=== PATIENT | female | born 2000 | race Caucasian/White ===

== ENCOUNTER 2022-09-04 10:39 | Observation (INO) ==
[2022-09-04] MEDS ORDERED: ONDANSETRON INJ 2 MG/ML 2 ML VIAL IV STA (11:36)
[2022-09-04] MEDS ORDERED: FAMOTIDINE 20MG IV PUSH 20 MG/5 ML SYR IV STA (11:36)
[2022-09-04] MEDS ORDERED: SODIUM CHLORIDE 0.9% 1000ML 1,000 ML IV SCH (11:37)
--- NOTE | 2022-09-04 11:41 | Emergency Department Note ---
History of Present Illness General Chief complaint: Abdominal Pain Stated complaint: UPPER ABD PAIN Time Seen by Provider: 09/04/22 11:03 History of Present Illness Maximum Pain Intensity: 7 Patient is a healthy 21-year-old female who presents emergency department for evaluation of epigastric abdominal pain. Her symptoms started around 2200 last evening. She states she was watching a movie when it happened. She notes a constant, aching epigastric pain that radiates through to her back. She states it feels like she was "punched in the stomach." She did feel nauseous and has vomited a total of 5 times, last was just prior to my arrival in the room. She tried taking some Tylenol which did seem to help that she was able to get a few hours of sleep. She has not had pain like this before. No history of stomach problems, has a history of infrequent acid reflux. There is no hematemesis. No diarrhea. No fever or chills. No urinary symptoms. She felt well this weekend and ate normally, no food or water concerns. No sick contacts. She does not drink alcohol, denies any drug use, no excess caffeine use. Allergies Allergy/AdvReac Type Severity Reaction Status Date / Time No Known Allergies Allergy Verified 09/04/22 11:36 Past Med/Surg History Medical History (Updated 09/04/22 @ 20:15 by Carlos Childs) History of dislocation of elbow right elbow Surgical History No history of previous surgery Social History Smoking Status: Current some day smoker Tobacco Type: E-cigarettes / Vaping Hx Alcohol Use: Yes Hx Substance Use: No Preferred Language: Uzbek Communication Ability: Effective Boarding Kennel Or Cattery Operator Required: No Beliefs That Will Affect Care: None Current Living Situation: Other Current Living Situation Comment: Roomate. Feels Safe at Home: Yes Safety Concerns: Feels Safe At This Time Assistive Devices: None Review of Systems A total of 10 systems reviewed and were otherwise negative Physical Exam Vital Signs Vital Signs - 24 hr 09/04/22 10:58 09/04/22 11:31 09/04/22 11:31 Temperature 36.6 C Temperature Source Temporal Artery Scan Pulse Rate 61 61 Pulse Rate [Left Finger] Pulse Rate from SpO2 Sensor Pulse Rhythm [Left Finger] Pulse Strength [Left Finger] Respiratory Rate 19 17 17 Respiratory Effort / Characteristics Non-Labored Non-Labored Respiratory Depth Normal Respiratory Pattern Regular Blood Pressure 128/85 154/72 H Blood Pressure [Left Arm] Blood Pressure Mean 99 99 Blood Pressure Mean [Left Arm] Blood Pressure Position [Left Arm] Pulse Oximetry 95 98 98 Oxygen Delivery Method Room Air Room Air Room Air Sepsis Recent Fever Within 48 Hours No Sepsis New/Unexplained Change in Mental Status N/A Sepsis Action Taken by Nursing No Action Required 09/04/22 13:03 09/04/22 11:11 09/04/22 11:20 Temperature Temperature Source Pulse Rate 59 L 58 L 102 H Pulse Rate [Left Finger] Pulse Rate from SpO2 Sensor 56 L Pulse Rhythm [Left Finger] Pulse Strength [Left Finger] Respiratory Rate 14 Respiratory Effort / Characteristics Respiratory Depth Respiratory Pattern Blood Pressure Blood Pressure [Left Arm] Blood Pressure Mean Blood Pressure Mean [Left Arm] Blood Pressure Position [Left Arm] Pulse Oximetry 98 Oxygen Delivery Method Sepsis Recent Fever Within 48 Hours Sepsis New/Unexplained Change in Mental Status Sepsis Action Taken by Nursing 09/04/22 11:30 09/04/22 11:40 09/04/22 11:50 Temperature Temperature Source Pulse Rate 60 63 60 Pulse Rate [Left Finger] Pulse Rate from SpO2 Sensor 60 62 60 Pulse Rhythm [Left Finger] Pulse Strength [Left Finger] Respiratory Rate 13 15 20 Respiratory Effort / Characteristics Respiratory Depth Respiratory Pattern Blood Pressure Blood Pressure [Left Arm] Blood Pressure Mean Blood Pressure Mean [Left Arm] Blood Pressure Position [Left Arm] Pulse Oximetry 98 98 97 Oxygen Delivery Method Sepsis Recent Fever Within 48 Hours Sepsis New/Unexplained Change in Mental Status Sepsis Action Taken by Nursing 09/04/22 12:00 09/04/22 12:57 09/04/22 13:00 Temperature Temperature Source Pulse Rate 60 58 L 58 L Pulse Rate [Left Finger] Pulse Rate from SpO2 Sensor 58 L 57 L 58 L Pulse Rhythm [Left Finger] Pulse Strength [Left Finger] Respiratory Rate 16 13 19 Respiratory Effort / Characteristics Respiratory Depth Respiratory Pattern Blood Pressure Blood Pressure [Left Arm] Blood Pressure Mean Blood Pressure Mean [Left Arm] Blood Pressure Position [Left Arm] Pulse Oximetry 96 99 99 Oxygen Delivery Method Sepsis Recent Fever Within 48 Hours Sepsis New/Unexplained Change in Mental Status Sepsis Action Taken by Nursing 09/04/22 13:10 09/04/22 13:20 09/04/22 13:30 Temperature Temperature Source Pulse Rate 65 54 L Pulse Rate [Left Finger] Pulse Rate from SpO2 Sensor 63 55 L Pulse Rhythm [Left Finger] Pulse Strength [Left Finger] Respiratory Rate 13 16 Respiratory Effort / Characteristics Respiratory Depth Respiratory Pattern Blood Pressure 108/81 Blood Pressure [Left Arm] Blood Pressure Mean 91 Blood Pressure Mean [Left Arm] Blood Pressure Position [Left Arm] Pulse Oximetry 100 100 Oxygen Delivery Method Sepsis Recent Fever Within 48 Hours Sepsis New/Unexplained Change in Mental Status Sepsis Action Taken by Nursing 09/04/22 13:30 09/04/22 14:12 09/04/22 14:13 Temperature 37.6 C H Temperature Source Oral Pulse Rate 58 L Pulse Rate [Left Finger] 56 L Pulse Rate from SpO2 Sensor 57 L Pulse Rhythm [Left Finger] Regular Pulse Strength [Left Finger] Normal Respiratory Rate 19 18 Respiratory Effort / Characteristics Non-Labored Spontaneous Respiratory Depth Normal Respiratory Pattern Regular Blood Pressure Blood Pressure [Left Arm] 128/82 Blood Pressure Mean Blood Pressure Mean [Left Arm] 97 Blood Pressure Position [Left Arm] Sitting Pulse Oximetry 100 100 Oxygen Delivery Method Room Air Room Air Sepsis Recent Fever Within 48 Hours Sepsis New/Unexplained Change in Mental Status Sepsis Action Taken by Nursing CONSTITUTIONAL: Patient is an uncomfortable/ill appearing 21-year-old female who is awake and alert and laying on the gurney. EYES: Pupils equal, round, reactive to light and accommodation. EOMs intact without nystagmus. Sclera are anicteric. ENT: Tympanic membranes intact, with normal landmarks. External canals are clear. Oral and nasopharynx are clear. Mucous membranes are moist, no lesions, tongue and gums appear normal. CARDIOVASCULAR: Regular rate and rhythm. Peripheral pulses easy to palpable. RESPIRATORY: Breath sounds equal and clear to auscultation. GI: Bowel sounds are present. Abdomen is soft, nondistended, tender to palpation in the epigastric and the right upper quadrant with voluntary guarding. MUSCULOSKELETAL: Full range of motion of extremities x 4 with good strength. No cyanosis, edema, joint tenderness or swelling. No deformity. INTEGUMENTARY: No lesions or rash, normal skin turgor. Course Course The patient was seen and assessed as above. External medical records are reviewed. She presents emergency department for evaluation of 12 hours of epigastric abdominal pain with associated nausea and vomiting. She is moderately tender in the epigastric and right upper quadrant on exam. IV lock was initiated and laboratory studies were collected. CBC with differential, CMP, lipase, urinalysis and serum hCG were collected. She was hydrated with normal saline solution, 1 L bolus and initially treated with Zofran 4 mg and Pepcid 20 mg IV. Gallbladder ultrasound was ordered. Laboratory studies per my interpretation note a normal white count at 8500. No left shift. No anemia. No significant electrolyte or renal function abnormalities. Transaminases are not elevated. Lipase is within normal limits. Serum hCG is negative. Urine microscopy is without signs of infection. Gallbladder ultrasound per my interpretation notes cholelithiasis and borderline gallbladder wall thickening concerning for acute cholecystitis. Nursing staff contacted me when the patient returned from ultrasound, stating that she was still vomiting. She was ordered fentanyl 50 mcg IV, Phenergan 12.5 mg IV and maintenance fluids. Laboratory studies and ultrasound findings were reviewed with her. Consultation was placed with general surgery. Patient was reviewed with KATY Plummer, with Dr. Nicholas. Please refer to surgical H&P for further information. They have elected to take the patient to the OR for cholecystectomy. A preoperative COVID test was obtained and was negative. Administered Medications Sodium Chloride (Nss 1000ml) 1,000 mls @ 250 mls/hr IV .Q4H RIGOBERTO Stop: 10/04/22 12:44 Last Admin: 09/04/22 17:25 Dose: 250 mls/hr Documented By: Infusion: 09/04/22 17:03 Dose: 0 mls/hr Documented By: Admin: 09/04/22 12:57 Dose: 250 mls/hr Documented By: SHERRI Ketorolac Tromethamine (Ketorolac 30 Mg/Ml Vial) 30 mg IV Q6H PRN PRN Reason: Pain & Pre PT Stop: 09/09/22 16:59 Last Admin: 09/04/22 17:31 Dose: 30 mg Documented By: CECY Discontinued Medications Bupivacaine HCl/Epinephrine Bitart (Bupivacaine/Epinephrine 0.25% 1:200,000 30 Ml Vial) Confirm Administered Dose 30 ml .ROUTE .STK-MED ONE Stop: 09/04/22 14:04 Last Admin: 09/04/22 15:13 Dose: 30 ml Documented By: ISABELLA Cefazolin Sodium (Cefazolin 2,000 Mg/15 Ml Iv Push) Confirm Administered Dose 2,000 mg IV .STK-MED ONE Stop: 09/04/22 14:35 Last Admin: 09/04/22 14:47 Dose: Not Given Documented By: FIORDALIZA Fentanyl Citrate (Fentanyl Citrate Pf 100 Mcg/2 Ml Vial) 50 mcg IV NOW STA Stop: 09/04/22 12:44 Last Admin: 09/04/22 12:57 Dose: 50 mcg Documented By: SHERRI Sodium Chloride (Nss 1000ml) 1,000 mls @ 999 mls/hr IV .Q1H1M RIGOBERTO Stop: 09/04/22 12:37 Last Infusion: 09/04/22 12:38 Dose: 0 mls/hr Documented By: Admin: 09/04/22 11:53 Dose: 999 mls/hr Documented By: SHERRI Famotidine (Pepcid 20mg Iv Push) 20 mg in 5 mls @ 2.5 mls/min IV NOW STA Stop: 09/04/22 11:37 Last Admin: 09/04/22 11:53 Dose: 2.5 mls/min Documented By: SHERRI Promethazine HCl (Phenergan) 12.5 mg in 50.5 mls @ 202 mls/hr IV NOW STA Stop: 09/04/22 12:57 Last Infusion: 09/04/22 13:12 Dose: 0 mls/hr Documented By: Admin: 09/04/22 12:58 Dose: 202 mls/hr Documented By: SHERRI Cefazolin Sodium (Ancef 2000mg) 2,000 mg in 15 mls @ 3.75 mls/min IV PREOP ONE; Protocol Stop: 09/04/22 14:36 Last Admin: 09/04/22 14:43 Dose: 3.75 mls/min Documented By: STEPHANIE Ondansetron HCl (Ondansetron Inj 2 Mg/Ml 2 Ml Vial) 4 mg IV NOW STA Stop: 09/04/22 11:37 Last Admin: 09/04/22 11:53 Dose: 4 mg Documented By: SHERRI Medical Decision Making Differential Diagnosis Differential diagnoses entertained included GERD, gastritis, esophagitis, peptic ulcer disease, infectious versus inflammatory colitis/enteritis, foodborne illness, otitis, acute cholecystitis, biliary colic, among others. Medical Records Attestation: I reviewed the patient's medical records. Home Medications Current Medication List: was personally reviewed by me Laboratory Data Attestation: I reviewed the patient's lab results. 09/04/22 Unknown 09/04/22 Unknown Lab Results 09/04/22 09/04/22 Range/Units 11:40 13:11 Urine Color Yellow Urine Appearance Clear (Clear) Urine pH 6.0 (4.5-7.5) Ur Specific [place] 1.029 (1.000-1.030) Urine Protein Trace H (Negative) Urine Glucose (UA) Negative (Negative) Urine Ketones 1+ H (Negative) Urine Blood Negative (Negative) Urine Nitrite Negative (Negative) Urine Bilirubin Negative (Negative) Urine Urobilinogen Negative (Negative) Ur Leukocyte Esterase Negative (Negative) Urine WBC (Auto) 1-5 (0-5) /hpf Urine RBC (Auto) 0-4 (0-4) /hpf U Hyaline Cast (Auto) 1-5 (0-5) /lpf U Epithel Cells (Auto) 10-20 H (0-5) /lpf Urine Bacteria (Auto) Negative (Negative) SARS-CoV-2, RNA, NAAT NEGATIVE (NEGATIVE) Imaging Data Attestation: I personally reviewed and interpreted this imaging study as follows: Radiologist's Impression: Gallbladder Ultrasound 09/04/22 11:37 US gallbladder CLINICAL HISTORY: EPIGASTRIC ABD PAIN TECHNIQUE: Multiple real-time sonographic images of the right upper quadrant were obtained. Comparison: None available at the time of this dictation. FINDINGS: The liver is diffusely homogenous with normal contour and echogenicity. No focal mass lesions are seen. No intrahepatic ductal dilatation is seen. Linear hyperechoic foci with posterior shadowing are identified layering dependently within the gallbladder, which are consistent with gallstones. The gallbladder wall measures 0.3 cm. There is no pericholecystic fluid present. A sonographic Banegas's sign was elicited by the reactor service operator. The common duct measures 0.6 cm in diameter at the level of the hepatic artery. The visualized portions of the pancreas appear normal. The right kidney shows normal echogenicity, cortical thickness and renal contour. The right kidney shows no evidence of hydronephrosis or mass. No ascites or free fluid is seen in August's pouch. IMPRESSION: Cholelithiasis and borderline gallbladder wall thickening with positive Banegas's sign. Findings are concerning for acute cholecystitis. ACT 112: Negative or not required by law. Electronically signed by: Tomasz Freire M.D. 09/04/2022 12:40 PM MDM Narrative See ED Course. Impression & Plan Acute cholecystitis Discharge Plan Visit Data Chief Complaint: Abdominal Pain Stated Complaint: UPPER ABD PAIN ED Provider: Misael Hernández ED Midlevel Provider: Carlos Childs Discharge Problem: Acute cholecystitis Patient Disposition: Admitted As Inpatient Discharge Instructions Interventions: ED Discharge Assessment Last Done: 09/04/22 14:13
[2022-09-04 12:13] LABS: Basophils # (auto) 0.03 K/uL (0-0.2); Basophils % (auto) 0.4 %; Eosinophils # (auto) 0.07 K/uL (0-0.50); Eosinophils % (auto) 0.8 %; Hematocrit (blood only) 42.8 % (37.0-47.0); Hemoglobin 14.5 g/dl (12.0-16.0); Immature Granulocytes # (auto) 0.02 K/uL (0.01-0.20); Immature Granulocytes % (auto) 0.2 %; Lymphocytes # (auto) 2.01 K/uL (1.2-3.4); Lymphocytes % (auto) 23.5 %; Mean Corpuscular Hemoglobin 28.4 pg (25.0-34.0); Mean Corpuscular Hgb Conc 33.9 g/dL (32.0-36.0); Mean Corpuscular Volume 83.9 fL (80.0-100.0); Monocytes # (auto) 0.55 K/uL (0.11-0.59); Monocytes % (auto) 6.4 %; Neutrophils # (auto) 5.89 K/uL (1.40-6.50); Neutrophils % (auto) 68.7 %; Platelet Count 257 K/uL (130-400); RDW Coefficient of Variation 12.4 % (11.5-14.5); RDW Standard Deviation 38.2 fL (36.4-46.3); White Blood Count 8.57 K/ul (4.8-10.8)
[2022-09-04 12:24] LABS: Albumin Globulin Ratio 1.6 (0.9-2); Albumin Level 4.6 gm/dl (3.4-5.0); BUN Creatinine Ratio 10.1 (10-20); Bilirubin,Total 0.4 mg/dl (0.2-1.0); Calcium 9.6 mg/dl (8.6-10.3); Creatinine Clr Calc Pharmacy 142.6 ml/min; Est GFR (African American) 145.2 ml/min; Est GFR (Non-African American) 125.3 ml/min; Globulin 2.9 gm/dl (2.5-4.0); Potassium 3.7 mmol/L (3.5-5.1); Pregnancy Test, Serum Negative (Negative); Total Protein 7.5 gm/dl (6.0-8.3)
[2022-09-04 12:32] LABS: Appearance Urine Clear (Clear); Bacteria Urine Automated Negative (Negative); Bilirubin Urine Negative (Negative); Blood Urine Negative (Negative); Color Urine Yellow; Glucose Urine UA Negative (Negative); Ketones Urine 1+ (Negative); Leukocyte Esterase Urine Negative (Negative); Nitrite Urine Negative (Negative); Protein Urine Trace (Negative); RBC Urine Automated 0-4 /hpf (0-4); Specific Gravity Urine 1.029 (1.000-1.030); Urobilinogen Urine Negative (Negative)
--- NOTE | 2022-09-04 12:41 | Ultrasound Report ---
US gallbladder CLINICAL HISTORY: EPIGASTRIC ABD PAIN TECHNIQUE: Multiple real-time sonographic images of the right upper quadrant were obtained. Comparison: None available at the time of this dictation. FINDINGS: The liver is diffusely homogenous with normal contour and echogenicity. No focal mass lesions are see n. No intrahepatic ductal dilatation is seen. Linear hyperechoic foci with posterior shadowing ar e identified layering dependently within the gallbladder, which are consistent with gallstones. The g allbladder wall measures 0.3 cm. There is no pericholecystic fluid present. A sonographic Banegas's s ign was elicited by the antiquer. The common duct measures 0.6 cm in diameter at the level of th e hepatic artery. The visualized portions of the pancreas appear normal. The right kidney shows normal echogenicity, cortical thickness and renal contour. The right kidney sh ows no evidence of hydronephrosis or mass. No ascites or free fluid is seen in August's pouch. IMPRESSION: Cholelithiasis and borderline gallbladder wall thickening with positive Banegas's sign. Findings are c oncerning for acute cholecystitis. ACT 112: Negative or not required by law. Electronically signed by: Tomasz Freire M.D. 09/04/2022 12:40 PM
[2022-09-04] MEDS ORDERED: fentaNYL citrate PF 100 MCG/2 ML VIAL IV STA (12:43)
[2022-09-04] MEDS ORDERED: PROMETHAZINE 12.5 MG/50.5 ML BAG IV STA (12:43)
[2022-09-04] MEDS: SODIUM CHLORIDE 0.9% 1000ML 1,000 ML IV SCH ×3 (12:57→22:34)
[2022-09-04] MEDS ORDERED: BUPIVACAINE/EPINEPHRINE 0.25% 1:200,000 30 ML VIAL ONE (14:03)
[2022-09-04] MEDS ORDERED: fentaNYL citrate PF 100 MCG/2 ML VIAL ONE ×2 (14:08→15:10)
[2022-09-04] MEDS ORDERED: MIDAZOLAM HCL 1 MG/ML 2ML VIAL ONE (14:08)
[2022-09-04] MEDS ORDERED: ONDANSETRON INJ 2 MG/ML 2 ML VIAL IV PRN ×2 (14:23→17:00)
[2022-09-04] MEDS ORDERED: ePHEDrine sulfate 50 MG/ML AMP IV PRN (14:23)
[2022-09-04] MEDS ORDERED: fentaNYL citrate PF 100 MCG/2 ML VIAL IV PRN (14:23)
[2022-09-04] MEDS ORDERED: PROMETHAZINE HCL 6.25 MG in SODIUM CHLORIDE 0.9% 50 ML IV PRN (14:23)
[2022-09-04] MEDS ORDERED: ATROPINE SULFATE 0.1 MG/ML 10ML SYR IV PRN (14:23)
--- NOTE | 2022-09-04 14:24 | Anesthesiology Consultation ---
Date of Service September 04, 2022 Assessment & Plan Chart Review Chart Review: Acceptable Risk for Surgery and Patient NOT seen in Pre Admission Testing Consults Requested none ASA [id number] Proposed Anesthesia Anesthesia Type: General Risk / Benefits Reviewed With: PT / POA / Parent / Guardian, Accepts Plan and Informed Consent Obtained History Surgery Operation Date: 09/04/22 10:55 Proposed Procedures p Laparoscopic Cholecystectomy - Elieser Nicholas MD Height/Weight Height: 5 ft 8 in Weight: 77.8 kg Allergies Allergy/AdvReac Type Severity Reaction Status Date / Time No Known Allergies Allergy Verified 09/04/22 11:36 Medications Active Medications Generic Name Dose Route Start Last Admin Trade Name Freq PRN Reason Stop Dose Admin Sodium Chloride 1,000 mls @ 250 mls/hr 09/04/22 12:45 09/04/22 12:57 Nss 1000ml IV 10/04/22 12:44 250 mls/hr .Q4H RIGOBERTO Administration NPO Date Last Intake of Fluids: 09/03/22 Time Last Intake of Fluids: 07:30 Date Last Intake of Solids: 09/03/22 Time Last Intake of Solids: 19:00 Past Medical History Medical History (Updated 09/04/22 @ 11:40 by Carlos Childs) No significant past medical history Exercise / Class Metabolic Activity II 4-5 Yardwork/Stairs/Walk up hill Past Surgical History Surgical History (Updated 09/04/22 @ 11:40 by Carlos Childs) No history of previous surgery Past Anesthesia History No Hx of Anesthesia Complications and No Family Hx of Anesthesia Complications History of PONV No Hx of PONV and No Hx of Motion Sickness Social History Smoking Status: Current every day smoker Physical Exam Vital Signs Last Vital Signs Temp 37.6 C H 09/04/22 14:12 Pulse 56 L 09/04/22 14:12 Resp 18 09/04/22 14:12 BP 128/82 09/04/22 14:12 Pulse Ox 100 09/04/22 14:12 O2 Del Method Room Air 09/04/22 14:13 ENMT Mouth: no dentition abnormality Thyromental Distance: > or= 3.5 Finger Breadths Mallampati Class: II Neck normal visual inspection Respiratory normal respiratory effort Auscultation: lungs clear to auscultation bilaterally Cardiovascular Rate/Rhythm: regular rate and regular rhythm Psychiatric Orientation: alert Testing Laboratory Results 09/04/22 Unknown 09/04/22 Unknown Urine Color Yellow 09/04/22 11:40 Urine Appearance Clear (Clear) 09/04/22 11:40 Urine pH 6.0 (4.5-7.5) 09/04/22 11:40 Ur Specific [place] 1.029 (1.000-1.030) 09/04/22 11:40 Urine Protein Trace (Negative) H 09/04/22 11:40 Urine Glucose (UA) Negative (Negative) 09/04/22 11:40 Urine Ketones 1+ (Negative) H 09/04/22 11:40 Urine Nitrite Negative (Negative) 09/04/22 11:40 Ur Leukocyte Esterase Negative (Negative) 09/04/22 11:40 Urine WBC (Auto) 1-5 /hpf (0-5) 09/04/22 11:40 Urine RBC (Auto) 0-4 /hpf (0-4) 09/04/22 11:40 U Hyaline Cast (Auto) 1-5 /lpf (0-5) 09/04/22 11:40 U Epithel Cells (Auto) 10-20 /lpf (0-5) H 09/04/22 11:40 Urine Bacteria (Auto) Negative (Negative) 09/04/22 11:40
--- NOTE | 2022-09-04 14:26 | History & Physical Report ---
Date of Service September 04, 2022 Assessment & Plan (1) Acute cholecystitis: Plan: 21-year-old woman presents with acute cholecystitis. We discussed the risks and benefits of a laparoscopic cholecystectomy, possible open. We discussed the postoperative recovery and restrictions. All her questions were answered, and she is agreeable to proceed. We will take her to the operating room at the earliest convenience. History of Present Illness Primary Care Provider: [facility] 21-year-old woman presents with a 1 day history of right upper quadrant pain radiating to her back and to her shoulders. This was accompanied by nausea and vomiting. She noted this after eating her dinner and popcorn. She denies fevers but did have chills. Ultrasound demonstrates acute cholecystitis. She has never had surgery in the past. Allergies Allergy/AdvReac Type Severity Reaction Status Date / Time No Known Allergies Allergy Verified 09/04/22 11:36 Past Med/Surg History Medical History No significant past medical history Surgical History No history of previous surgery Social History Smoking Status: Current every day smoker Tobacco Type: E-cigarettes / Vaping Preferred Language: Serbian Current Living Situation Comment: [employer] student who lives off campus with a roommate. From [facility]. Feels Safe at Home: Yes Review of Systems Review of Systems: All systems reviewed & are unremarkable except as noted in HPI & below Physical Exam Constitutional: WD/WN, vitals as above Eyes: PERRL, conjunctivae normal, anicteric sclerae Neck: trachea midline, no thyromegaly Respiratory: normal respiratory effort; no respiratory distress and no labored breathing Cardiovascular: Rate/Rhythm: regular rate and regular rhythm Gastrointestinal (Abdomen): Inspection/Auscultation: abdomen normal to inspection; abdomen not distended Percussion/Palpation: + abdomen tender (Right upper quadrant epigastrium) and abdomen soft; no guarding and abdomen not rigid Positive Banegas sign Skin: no rashes, warm and dry Psychiatric: A+Ox3, euthymic affect Results & Data Results & Data Vital Signs (Past 12 Hours) Vital Signs Temp Pulse Pulse Resp BP BP Pulse Ox 09/04/22 14:13 07/03/23 14:12 37.6 C H 56 L 18 128/82 100 09/04/22 13:30 58 L 19 100 09/04/22 13:30 108/81 09/04/22 13:20 54 L 16 100 09/04/22 13:10 65 13 100 09/04/22 13:00 58 L 19 99 09/04/22 12:57 58 L 13 99 09/04/22 12:00 60 16 96 09/04/22 11:50 60 20 97 09/04/22 11:40 63 15 98 09/04/22 11:30 60 13 98 09/04/22 11:20 102 H 09/04/22 11:11 58 L 14 98 09/04/22 13:03 59 L 09/04/22 11:31 17 98 09/04/22 11:31 61 17 154/72 H 98 09/04/22 10:58 36.6 C 61 19 128/85 95 O2 Del Method 09/04/22 14:13 Room Air 09/04/22 14:12 Room Air 09/04/22 13:30 09/04/22 13:30 09/04/22 13:20 09/04/22 13:10 09/04/22 13:00 09/04/22 12:57 09/04/22 12:00 09/04/22 11:50 09/04/22 11:40 09/04/22 11:30 09/04/22 11:20 09/04/22 11:11 09/04/22 13:03 09/04/22 11:31 Room Air 09/04/22 11:31 Room Air 09/04/22 10:58 Room Air Laboratory Results 09/04/22 09/04/22 09/04/22 Range/Units Unknown Unknown Unknown WBC 8.57 (4.8-10.8) K/ul RBC 5.10 (4.20-5.40) M/uL Hgb 14.5 (12.0-16.0) g/dl Hct 42.8 (37.0-47.0) % MCV 83.9 (80.0-100.0) fL MCH 28.4 (25.0-34.0) pg MCHC 33.9 (32.0-36.0) g/dL RDW Std Deviation 38.2 (36.4-46.3) fL RDW Coeff of Noelle 12.4 (11.5-14.5) % Plt Count 257 (130-400) K/uL MPV 9.0 L (9.4-12.4) fL Immature Gran % (Auto) 0.2 % Neut % (Auto) 68.7 % Lymph % (Auto) 23.5 % [place] % (Auto) 6.4 % Eos % (Auto) 0.8 % Baso % (Auto) 0.4 % Neut # (Auto) 5.89 (1.40-6.50) K/uL Lymph # (Auto) 2.01 (1.2-3.4) K/uL [place] # (Auto) 0.55 (0.11-0.59) K/uL Eos # (Auto) 0.07 (0-0.50) K/uL Baso # (Auto) 0.03 (0-0.2) K/uL Immature Gran # (Auto) 0.02 (0.01-0.20) K/uL Sodium 137 (136-145) mmol/L Potassium 3.7 (3.5-5.1) mmol/L Chloride 104 (98-107) mmol/L Carbon Dioxide 25 (21-32) mmol/L Anion Gap 8 (3-11) BUN 7 (6-23) mg/dl Creatinine 0.69 (0.6-1.2) mg/dl Est Cr Clr Drug Dosing 142.6 ml/min Est GFR ( Amer) 145.2 ml/min Est GFR (Non-Af Amer) 125.3 ml/min BUN/Creatinine Ratio 10.1 (10-20) Glucose 107 H (70-99(Fasting)) mg/dl Calcium 9.6 (8.6-10.3) mg/dl Total Bilirubin 0.4 (0.2-1.0) mg/dl AST 36 (13-39) U/L ALT 21 (7-52) U/L Alkaline Phosphatase 80 (34-104) U/L Total Protein 7.5 (6.0-8.3) gm/dl Albumin 4.6 (3.4-5.0) gm/dl Globulin 2.9 (2.5-4.0) gm/dl Albumin/Globulin Ratio 1.6 (0.9-2) Lipase 20 (11-82) U/L HCG, Qual Negative (Negative) Urine Color Urine Appearance (Clear) Urine pH (4.5-7.5) Ur Specific [place] (1.000-1.030) Urine Protein (Negative) Urine Glucose (UA) (Negative) Urine Ketones (Negative) Urine Blood (Negative) Urine Nitrite (Negative) Urine Bilirubin (Negative) Urine Urobilinogen (Negative) Ur Leukocyte Esterase (Negative) Urine WBC (Auto) (0-5) /hpf Urine RBC (Auto) (0-4) /hpf U Hyaline Cast (Auto) (0-5) /lpf U Epithel Cells (Auto) (0-5) /lpf Urine Bacteria (Auto) (Negative) SARS-CoV-2, RNA, NAAT (NEGATIVE) 09/04/22 09/04/22 Range/Units 13:11 11:40 WBC (4.8-10.8) K/ul RBC (4.20-5.40) M/uL Hgb (12.0-16.0) g/dl Hct (37.0-47.0) % MCV (80.0-100.0) fL MCH (25.0-34.0) pg MCHC (32.0-36.0) g/dL RDW Std Deviation (36.4-46.3) fL RDW Coeff of Noelle (11.5-14.5) % Plt Count (130-400) K/uL MPV (9.4-12.4) fL Immature Gran % (Auto) % Neut % (Auto) % Lymph % (Auto) % [place] % (Auto) % Eos % (Auto) % Baso % (Auto) % Neut # (Auto) (1.40-6.50) K/uL Lymph # (Auto) (1.2-3.4) K/uL [place] # (Auto) (0.11-0.59) K/uL Eos # (Auto) (0-0.50) K/uL Baso # (Auto) (0-0.2) K/uL Immature Gran # (Auto) (0.01-0.20) K/uL Sodium (136-145) mmol/L Potassium (3.5-5.1) mmol/L Chloride (98-107) mmol/L Carbon Dioxide (21-32) mmol/L Anion Gap (3-11) BUN (6-23) mg/dl Creatinine (0.6-1.2) mg/dl Est Cr Clr Drug Dosing ml/min Est GFR ( Amer) ml/min Est GFR (Non-Af Amer) ml/min BUN/Creatinine Ratio (10-20) Glucose (70-99(Fasting)) mg/dl Calcium (8.6-10.3) mg/dl Total Bilirubin (0.2-1.0) mg/dl AST (13-39) U/L ALT (7-52) U/L Alkaline Phosphatase (34-104) U/L Total Protein (6.0-8.3) gm/dl Albumin (3.4-5.0) gm/dl Globulin (2.5-4.0) gm/dl Albumin/Globulin Ratio (0.9-2) Lipase (11-82) U/L HCG, Qual (Negative) Urine Color Yellow Urine Appearance Clear (Clear) Urine pH 6.0 (4.5-7.5) Ur Specific [place] 1.029 (1.000-1.030) Urine Protein Trace H (Negative) Urine Glucose (UA) Negative (Negative) Urine Ketones 1+ H (Negative) Urine Blood Negative (Negative) Urine Nitrite Negative (Negative) Urine Bilirubin Negative (Negative) Urine Urobilinogen Negative (Negative) Ur Leukocyte Esterase Negative (Negative) Urine WBC (Auto) 1-5 (0-5) /hpf Urine RBC (Auto) 0-4 (0-4) /hpf U Hyaline Cast (Auto) 1-5 (0-5) /lpf U Epithel Cells (Auto) 10-20 H (0-5) /lpf Urine Bacteria (Auto) Negative (Negative) SARS-CoV-2, RNA, NAAT NEGATIVE (NEGATIVE) Diagnostic Findings US gallbladder CLINICAL HISTORY: EPIGASTRIC ABD PAIN TECHNIQUE: Multiple real-time sonographic images of the right upper quadrant were obtained. Comparison: None available at the time of this dictation. FINDINGS: The liver is diffusely homogenous with normal contour and echogenicity. No focal mass lesions are seen. No intrahepatic ductal dilatation is seen. Linear hyperechoic foci with posterior shadowing are identified layering dependently within the gallbladder, which are consistent with gallstones. The gallbladder wall measures 0.3 cm. There is no pericholecystic fluid present. A sonographic Banegas's sign was elicited by the snuff container inspector. The common duct measures 0.6 cm in diameter at the level of the hepatic artery. The visualized portions of the pancreas appear normal. The right kidney shows normal echogenicity, cortical thickness and renal contour. The right kidney shows no evidence of hydronephrosis or mass. No ascites or free fluid is seen in August's pouch. IMPRESSION: Cholelithiasis and borderline gallbladder wall thickening with positive Banegas's sign. Findings are concerning for acute cholecystitis.
[2022-09-04] MEDS ORDERED: ceFAZolin 2000MG 2,000 MG/15 ML SYR IV ONE (14:33)
[2022-09-04] MEDS ORDERED: ceFAZolin 2,000 MG/15 ML IV PUSH IV ONE (14:34)
[2022-09-04] MEDS ORDERED: SUGAMMADEX SODIUM 200 MG/2 ML VIAL IV ONE (15:12)
[2022-09-04] MEDS ORDERED: ROCURONIUM BROMIDE 10 MG/ML 5 ML VIAL IV ONE (15:13)
[2022-09-04] MEDS ORDERED: PROPOFOL IV EMULSION 10 MG/ML 20 ML VIAL IV ONE (15:13)
[2022-09-04] MEDS ORDERED: ONDANSETRON INJ 2 MG/ML 2 ML VIAL ONE (15:13)
[2022-09-04] MEDS ORDERED: ESMOLOL HCL INJ 10 MG/ML 10ML VIAL IV ONE (15:13)
[2022-09-04] MEDS ORDERED: DEXAMETHASONE SOD INJ 4 MG/ML VIAL ONE (15:13)
[2022-09-04] MEDS ORDERED: LIDOCAINE 2% 2 ML VIAL/AMP(20MG/ML) INFIL ONE (15:13)
[2022-09-04] MEDS ORDERED: PHENYLEPHRINE HCL 10 MG/ML VIAL ONE (15:13)
[2022-09-04] MEDS ORDERED: LABETALOL HCL IV 5 MG/ML 20ML IV ONE (15:30)
--- NOTE | 2022-09-04 15:44 | Operative Report ---
Post Operative Report Pre & Post Diagnosis Operation Date: 09/04/22 10:55 Preop diagnosis: Acute cholecystitis Postop diagnosis: Acute cholecystitis I identified the patient and participated in the time-out.: Yes Procedure Operation Date: 09/04/22 10:55 Laparoscopic cholecystectomy Surgeon Elieser Nicholas MD [place] Operator KENNETH Rebolledo assisted with tissue retraction, camera op, closure Estimated Blood Loss 5 Findings Consistent with Post-Op Diagnosis Severe acute cholecystitis Specimens Gallbladder Drains None Anesthesia Type General Complications No immediate complications Description of Procedure The patient was taken to the operating room, and placed supine on the operating table. A timeout was performed, perioperative antibiotics were administered, SCD boots were placed. After adequate anesthesia and analgesia was obtained, the abdomen was prepped and draped in the normal sterile fashion. Local anesthetic was injected into and around the proposed incision sites. An incision was made with a 15 blade scalpel in the supraumbilical region and carried down to the level of the fascia. The fascia was grasped with a trach hook, and a varies needle was used to enter the abdominal cavity. The abdomen was insufflated to a pressure of 15 mmHg, and a 11 mm trocar was placed in this location. A 10 mm, 30 degree laparoscope was placed into the abdominal cavity, and the abdomen was surveyed. The gallbladder was quite distended and taut. There was a large stone in the base/neck of the gallbladder. Two 5 mm trochars were placed along the right costal margin, and one 5 mm trocar was placed in the subxiphoid region under direct visualization. The gallbladder was grasped and retracted cephalad and laterally, exposing the triangle of Calot. Dissection began in the triangle with a combination of blunt dissection with the [place] dissector, and judicious use of the hook cautery. The cystic duct and cystic artery were dissected free circumferentially, and a critical view of safety was obtained. The cystic duct and cystic artery were clipped and transected, and the gallbladder was removed from the gallbladder fossa with the hook cautery. The camera was switched to a 5 mm, the gallbladder was placed in an Endo Catch bag, and removed via the supraumbilical port site. The camera was switched back to the 10 mm camera, and the abdomen was surveyed again. Hemostasis was checked and attended, and was excellent. The abdomen was copiously irrigated and suctioned free. Again hemostasis was checked and was excellent. All trochars were removed under direct visualization. The abdomen was desufflated. The fascia in the 11 mm port site was closed with a 0 Vicryl suture. The skin was closed with a running 4-0 Monocryl subcuticular stitch. Dermabond was applied. The patient tolerated the procedure without complication, and was transferred in stable condition to the PACU. All instrument, needle, and sponge counts were correct at the end of the case. My tiler's assistant was necessary throughout the procedure for tissue retraction, possible camera operation, and closure of the wounds. I understand that section 1842(b)(7)(D) of the Social Security act generally prohibits Medicare physician fee schedule payment for the services of assistants at surgery in teaching hospitals when qualified residents are available to furnish such services. I certify that the services for which payment is claimed were medically necessary and that no qualified resident was available to perform the services. I further understand that these services are subject to postpayment review by the Medicare carrier. I attest to the content of the Intraoperative Record and any orders documented therein. Any exceptions are noted below.
--- NOTE | 2022-09-04 15:47 | Post Operative Brief Note ---
Immediate Post Op Note v1 Date of Surgery September 04, 2022 Pre & Post Diagnosis Operation Date: 09/04/22 10:55 Preop: Acute cholecystitis Postop: Acute cholecystitis I identified the patient and participated in the time-out.: Yes Procedure Operation Date: 09/04/22 10:55 Laparoscopic cholecystectomy Surgeon Elieser Nicholas MD Supervisor Display Fabrication KENNETH Rebolledo assisted with tissue retraction, camera op, closure Estimated Blood Loss 5 Findings Consistent with Post-Op Diagnosis Anesthesia Type General
--- NOTE | 2022-09-04 16:26 | Anesthesiology Progress Note ---
Date of Service September 04, 2022 Anesthesia Post Procedure Vital Signs Vital Signs: Temp Pulse Pulse Pulse Resp BP BP 09/04/22 16:10 69 20 104/67 09/04/22 16:00 81 21 104/67 09/04/22 15:53 37.0 C 88 16 121/73 09/04/22 14:13 09/04/22 14:12 37.6 C H 56 L 18 128/82 09/04/22 13:30 58 L 19 09/04/22 13:30 108/81 09/04/22 13:20 54 L 16 09/04/22 13:10 65 13 09/04/22 13:00 58 L 19 09/04/22 12:57 58 L 13 09/04/22 12:00 60 16 09/04/22 11:50 60 20 09/04/22 11:40 63 15 09/04/22 11:30 60 13 09/04/22 11:20 102 H 09/04/22 11:11 58 L 14 09/04/22 13:03 59 L 09/04/22 11:31 17 09/04/22 11:31 61 17 154/72 H 09/04/22 10:58 36.6 C 61 19 128/85 Pulse Ox O2 Del Method 09/04/22 16:10 99 Room Air 09/04/22 16:00 95 Room Air 09/04/22 15:53 99 Room Air 09/04/22 14:13 Room Air 09/04/22 14:12 100 Room Air 09/04/22 13:30 100 09/04/22 13:30 09/04/22 13:20 100 09/04/22 13:10 100 09/04/22 13:00 99 09/04/22 12:57 99 09/04/22 12:00 96 09/04/22 11:50 97 09/04/22 11:40 98 09/04/22 11:30 98 09/04/22 11:20 09/04/22 11:11 98 09/04/22 13:03 09/04/22 11:31 98 Room Air 09/04/22 11:31 98 Room Air 09/04/22 10:58 95 Room Air Pain Intensity Abdomen: Pain Intensity: 0 Transfer of Care Handoff Completed per policy Notes Mental Status: alert / awake / arousable Patient Amnestic to Procedure: Yes Nausea / Vomiting: adequately controlled Pain: adequately controlled Airway Patency, RR, SpO2: stable & adequate BP & HR: stable & adequate Hydration State: stable & adequate Anesthetic Complications: no major complications apparent
[2022-09-04] MEDS ORDERED: PROMETHAZINE HCL 12.5 MG in SODIUM CHLORIDE 0.9% 50 ML IV PRN (17:00)
[2022-09-04] MEDS ORDERED: MoRPHine SULFATE 2 MG/ML CARP IV PRN (17:00)
[2022-09-04] MEDS ORDERED: diphenhydrAMINE Capsule 25 MG CAP PO PRN (17:00)
[2022-09-04] MEDS ORDERED: oxyCODONE/ACETAMINOPHEN 5mg/325mg TAB PO PRN (17:00)
[2022-09-04] MEDS: KETOROLAC 30 MG/ML VIAL IV PRN (17:31)
[2022-09-04] MEDS ORDERED: ACETAMINOPHEN 325 MG TAB PO PRN (17:52)
[2022-09-05] MEDS: SODIUM CHLORIDE 0.9% 1000ML 1,000 ML IV SCH ×3 (01:33→09:25)
[2022-09-05] MEDS ORDERED: ENOXAPARIN INJ 40 MG/0.4 ML SYR SQ SCH (08:00)
--- NOTE | 2022-09-05 10:52 | Surgery Progress Note ---
Date of Service September 05, 2022 Assessment & Plan (1) Acute cholecystitis: Plan: POD #1 status post lap cholecystectomy Doing well Discharge to home Instructions given Return to clinic for follow-up in 2 weeks Admission and Anticipated Discharge Date Admission Date: September 04, 2022 Subjective Doing well. Minimal pain. Tolerating diet. No fevers or chills. No diarrhea. Physical Exam Physical Exam: NAD, A&O x3 AFVSS Abdomen: Soft, nontender Incisions healing well without erythema or discharge Dermabond in place Results & Data Vital Signs (Past 12 Hours) Vital Signs Temp Pulse Resp BP Pulse Ox O2 Del Method 09/05/22 06:56 36.8 C 74 16 97/60 L 99 Room Air 09/05/22 03:03 36.9 C 88 16 91/53 L 99 Room Air 09/04/22 22:58 36.8 C 52 L 16 96/59 L 99 Room Air
[2022-09-05] MEDS: KETOROLAC 30 MG/ML VIAL IV PRN (11:32)
--- NOTE | 2022-09-07 13:16 | Discharge Summary ---
Date of Service September 07, 2022 Admission HPI Per Admitting Provider 21-year-old woman presents with a 1 day history of right upper quadrant pain radiating to her back and to her shoulders. This was accompanied by nausea and vomiting. She noted this after eating her dinner and popcorn. She denies fevers but did have chills. Ultrasound demonstrates acute cholecystitis. She has never had surgery in the past. Principal Diagnosis acute calculous cholecystitis Discharge Data Allergies Allergy/AdvReac Type Severity Reaction Status Date / Time No Known Allergies Allergy Verified 09/04/22 11:36 Procedures Performed Operation Date: 09/04/22 10:55 Actual Procedures p Laparoscopic Cholecystectomy(Not Applicable) - Elieser Nicholas MD Ordered Studies 09/04/22 11:37 US gallbladder Stat Hospital Course (1) Acute cholecystitis: Patient taken to operating room for laparoscopic cholecystectomy by Dr. Nicholas on 09/04/2022. Patient found to have acute cholecystitis. Patient tolerated procedure without difficulty and was transferred to recovery then to medical/surgical floor for postoperative care. Diet was advanced as tolerated, activity as tolerated, narcotic pain medication and antiemetics ordered as needed. Patient was evaluated on POD # 1 , avss, postop pain controlled. She was discharged home on POD # 1 in stable condition. Total Time Total Time Spent Total Time Spent (In Minutes): 30 Total Time Includes: Examination of the Patient, Discharge Planning and Medication Reconciliation Discharge Plan Discharge Items Patient Disposition: Home - Self-Care Reason For Visit: ACUTE CHOLECYSTITIS Discharge Diagnosis: acute cholecystits Activity: Per Instructions section Non-emergency contact: Surgeon Call non-emergency contact if: you have any medication questions, your pain is not controlled, your pain is worsening, your pain is concerning for you, you have a fever, your temperature is above 101, your wound has increased redness, your wound has increased drainage and your wound pain has increased Follow-up/Referrals: Geovanna Rebolledo PA-C [Physician Senior Account Clerk] - PCP,NO [Physician] - Diet: Regular Addtl Attending Provider Instructions: Post-Surgical ~Discharge Instructions Activity Recommendations: - lifting limitation: (20 pounds for 2-3 weeks), - exercise/sex/sports limit: (nonstrenuous for 2 weeks), - driving or machine use limit: (none for 1 week or until pain free and no longer taking narcotic pain medication), - Shower/bathe limit: (may shower beginning tomorrow) Diet: - Resume previous diet SPECIAL CARE INSTRUCTIONS: - May shower. Let water run over area and pat dry. - Leave surgical glue on incisions. - Call the surgeon's office with any questions or concerns - - (ex. temperature higher than 101 degrees F, excessive bleeding or pain). MEDICATIONS: - Resume previous medications unless instructed otherwise by your surgeon. - May alternate extra strength Tylenol and Ibuprofen as needed for mild to moderate pain -650 m Tylenol every 6 hours as needed - Ibuprofen 600 mg every 6 hours as needed (take with food) - Percocet 1 every 6 hours, as needed for moderate to severe pain - Recommend daily stool softener (Colace) while taking narcotic pain medication to prevent constipation or straining. Drink plenty of water daily. FOLLOW UP VISIT: - If not already scheduled, please call the office to schedule a two week follow-up appointment. Office number Pending Studies at Discharge: Yes (gallbladder pathology, will be reviewed at postop visit) Stand-Alone Forms: My [facility], Pain - Opioid Pain Management, Smoking Cessation Medications and DC Order Prescriptions: New oxycodone-acetaminophen [Percocet] 5-325 mg tablet 1 tab PO Q6H PRN (Reason: pain) Qty: 10 0RF Continued acetaminophen 500 mg Tablet 500 mg PO Q6H PRN (Reason: Pain) drospirenone-ethinyl estradiol [CHEN (28)] 3-0.02 mg Tablet 1 tab PO DAILY Discharge Orders: Discharge Order (Routine); Ordered 09/05/22 Ordered By: Elieser Harris/Other Patient Handouts: Cholecystectomy, Anatomy of the Digestive System Admission Data Admit Date/Time: 09/04/22 15:49 Attending Provider: Elieser Nicholas Admit Provider: Elieser Nicholas Primary Care Provider: [facility] Other Interventions: Discharge Summary Assessment (RN) Last Done: 09/05/22 11:20
== END 2022-09-05 12:21 | disposition home or self-care (01) ==
LOC: ED 10:39 → 3E 14:09 → ASU 14:09 → 3E 14:13